=== PATIENT | male | born 2000 | race Caucasian/White ===

== ENCOUNTER 2024-05-03 14:50 | Emergency (ER) | payer BC, SELFPAY ==
[2024-05-03 15:43] VITALS: BP 139/76; PULSE 67; RESP 20; TEMP 36.6; O2SAT 99; BMI 27.3
--- NOTE | 2024-05-03 16:00 | ED_ITS ---
Discharge Plan Disposition Patient Disposition: Home, Self-Care Condition: Good Referrals Follow up/Referrals: Provider,Referral, MD [Primary Care Provider] - See instructions Activity Restrictions/Add. Instructions Additional Instructions/Restrictions: Follow up with your Family Doctor to get the results and discuss treatment if anything is positive Your test results should be back in the next 3-5 days Refrain from sexual activity until you get your test back and they are negative or you have been treated Clinical Impressions Clinical Impression: Possible exposure to STI Instructions Patient Instructions: Chlamydia, DI for Gonorrhea Print Language Print Language: Hungarian Discharge ED Provider: Keisha Benitez [facility] HPI General Stated complaint: std test Mode of Arrival: Ambulatory Source of Information: Patient Time Seen by Provider: 05/03/24 16:00 Description of Symptoms (Recalled from Triage Doc. by RN): STD TESTING HEENT Symptoms (Recalled from RN notes): No Resp Symptoms (Recalled from RN notes): No Skin Symptoms (Recalled from RN notes): No MS Symptoms (Recalled from RN notes): No Functional Status (Recalled from RN notes): WNL History of Present Illness Provider Complaint: Patient requesting to be tested for STD and herpes States he hasnt had any known exposures but someone in the past that he was with had some places on her lips and he was worried and hasnt been tested so he wanted to get tested for trich, Chlamydia, Gonorrhea and herpes Related Data Allergies Allergy/AdvReac Type Severity Reaction Status Date / Time No Known Allergies Allergy Verified 05/03/24 16:29 Worker's Comp Is this a Worker's Comp case?: No [facility] Disclaimer: The information contained in this section may have been updated after the patient was seen, as this information can be updated by other users. Social History Smoking Status: Unknown if ever smoked alcohol intake: never current occupational status: employed Travel in the last 8 weeks: None ROS Obtained: Yes All systems reviewed & no additional complaints except as documented and Yes Systems reviewed as appropriate & no additional complaints except as documented Constitutional Constitutional: Reports system reviewed and no additional complaints, except as documented and Reports as per HPI ENT Ears, Nose, Mouth, and Throat: Reports system reviewed and no additional complaints, except as documented and Reports as per HPI Cardiovascular Cardiovascular: Reports system reviewed and no additional complaints, except as documented and Reports as per HPI Respiratory Respiratory: Reports system reviewed and no additional complaints, except as documented and Reports as per HPI Gastrointestinal Gastrointestingal: Reports system reviewed and no additional complaints, except as documented and as per HPI Genitourinary Male Genitourinary: Reports system reviewed and no additional complaints, except as documented, Reports as per HPI, Denies genital pain, Denies penile discharge, Denies scrotal swelling, Denies testicular pain and Denies urinary incontinence Physical Exam General General appearance: alert and in no apparent distress ENT ENT exam: Present mucous membranes moist Respiratory Respiratory exam: Present normal lung sounds bilaterally; Absent respiratory distress or wheezes Cardiovascular Cardiovascular exam: Present regular rate, normal rhythm and normal heart sounds Abdominal Exam Abdominal exam: Present soft and normal bowel sounds; Absent distention or tenderness exam: Present deferred Neurological Exam Neurological exam: Present alert, oriented X3 and normal gait Medical Decision Making Medical Records Screening: Per USPSTF and CDC recommendations, given the prevalence of disease in our region, it is our hospital?s policy to screen for HIV and viral Hepatitis for all patients aged 18 and over and those with ongoing risk factors. Carlos Inquiry Pt receiving controlled substance: No Carlos was queried for this patient: No Vital Signs: 05/03/24 15:43 Temperature 97.8 F Temperature Source Oral Pulse Rate [Left Brachial] 67 Respiratory Rate 20 Blood Pressure [Left Arm] 139/76 Blood Pressure Mean [Left Arm] 97 02 Sat by Pulse Oximetry 99 Lab Data Lab results reviewed: Yes I reviewed the patient's lab results.
[2024-05-03 16:47] VITALS: BP 139/76; PULSE 67; RESP 20; TEMP 36.6
[2024-05-03 16:49] LABS: Microscopic, Urine URINE MICROSCOPIC (MICROSCOPIC)
[2024-05-03 16:59] LABS: Appearance,Urine CLEAR (Clear); Bilirubin,Urine Negative (Negative); Blood, Urine Negative (Negative); Color,Urine YELLOW (Yellow); Glucose,Urine (UA) Negative (Negative); Ketones,Urine Negative (Negative); Leukocyte Esterase,Urine Negative (Negative); Nitrate,Urine Negative (Negative); PH,Urine 6.5 (5.0-8.5); Protein,Urine Negative (Negative); Specific Gravity, Urine 1.025 (1.005-1.030)
[2024-05-03 17:20] LABS: Bacteria,Urine Trace /lpf; Mucus,Urine 3+ /lpf; RBC,Urine Occasional #/hpf (0-3); Squamous Epithelial Cell,Urine Occasional #/hpf (0-5); WBC,Urine Occasional #/hpf (0-3)
[2024-05-06 12:14] LABS: Neisseria gonorrhoeae, NAA Negative (Negative)
[2024-05-09 07:21] LABS: HSV-1 DNA Negative (Negative); HSV-2 DNA Negative (Negative)
== END 2024-05-03 16:48 | disposition home or self-care (01) ==
PROVIDERS: Emergency Provider Nurse Practitioner
DX: Z20.2 Contact with and (suspected) exposure to infections with a predominantly sexual mode of transmission (principal)
CPT/HCPCS: 81001; 87491; 87529; 87591; 99203; 99212; G0463

== ENCOUNTER 2024-05-08 17:52 | Emergency (ER) | payer BC, SELFPAY ==
[2024-05-08 18:35] VITALS: BP 143/72; PULSE 54; RESP 20; TEMP 36.7; O2SAT 100; BMI 26.6
[2024-05-08 18:39] LABS: Apearance,Urine Clear (Clear); Color,Urine Yellow (Yellow); Glucose,Urine (UA) Negative (Negative); Ketones,Urine Negative (Negative); PH,Urine 6.5 (5.0-8.5); Protein,Urine Negative (Negative)
[2024-05-08 18:40] LABS: Bilirubin,Urine Negative (Negative); Blood, Urine Negative (Negative); UTC Leukocyte Esterase,Urine Negative (Negative); UTC Nitrate,Urine Negative (Negative); Urobilinogen,Urine 0.2 EU/dl (0.2)
--- NOTE | 2024-05-08 18:43 | ED_ITS ---
Discharge Plan Disposition Patient Disposition: Home, Self-Care Condition: Good Prescriptions Prescriptions: New fluconazole 150 mg tablet 150 mg PO ONCE 1 Days Qty: 1 0RF Referrals Follow up/Referrals: Provider,Referral, MD [Primary Care Provider] - See instructions Activity Restrictions/Add. Instructions Additional Instructions/Restrictions: Take medication as prescribed It is one pill Follow up with your Family Doctor if symptoms continue Return if needed Straight to ER if any life threatening symptoms Clinical Impressions Clinical Impression: Yeast infection Instructions Patient Instructions: Fluconazole Print Language Print Language: Sri Lankan Discharge ED Provider: Keisha Benitez [facility] General Stated complaint: possible uti Mode of Arrival: Ambulatory Source of Information: Patient Time Seen by Provider: 05/08/24 18:43 Description of Symptoms (Recalled from Triage Doc. by RN): POSSIBLE UTI, BURING WHEN VOIDING HEENT Symptoms (Recalled from RN notes): No Resp Symptoms (Recalled from RN notes): No Skin Symptoms (Recalled from RN notes): No MS Symptoms (Recalled from RN notes): No Functional Status (Recalled from RN notes): WNL History of Present Illness Provider Complaint: Patient states that he has had a little burning/itchy feeling when he urinates States it is not bad just a little uncomfortable at times States he was worried he may have a UTI Related Data Previous Rx's ?Medication ?Instructions ?Recorded fluconazole 150 mg tablet 150 mg PO ONCE 1 day #1 tab 05/08/24 Allergies Allergy/AdvReac Type Severity Reaction Status Date / Time No Known Allergies Allergy Verified 05/03/24 16:29 Worker's Comp Is this a Worker's Comp case?: No [facility] Disclaimer: The information contained in this section may have been updated after the patient was seen, as this information can be updated by other users. Social History (Updated 05/03/24 @ 19:14 by Keisha Benitez APRN) Smoking Status: Unknown if ever smoked alcohol intake: never current occupational status: employed Travel in the last 8 weeks: None ROS Obtained: Yes All systems reviewed & no additional complaints except as documented and Yes Systems reviewed as appropriate & no additional complaints except as documented Constitutional Constitutional: Reports system reviewed and no additional complaints, except as documented and Reports as per HPI ENT Ears, Nose, Mouth, and Throat: Reports system reviewed and no additional complaints, except as documented and Reports as per HPI Cardiovascular Cardiovascular: Reports system reviewed and no additional complaints, except as documented and Reports as per HPI Respiratory Respiratory: Reports system reviewed and no additional complaints, except as documented and Reports as per HPI Gastrointestinal Gastrointestingal: Reports system reviewed and no additional complaints, except as documented and as per HPI Genitourinary Male Genitourinary: Reports system reviewed and no additional complaints, except as documented, Reports as per HPI and Reports other (burning/itchy feeling when urinating) Physical Exam General General appearance: alert and in no apparent distress ENT ENT exam: Present mucous membranes moist Respiratory Respiratory exam: Present normal lung sounds bilaterally; Absent respiratory distress or wheezes Cardiovascular Cardiovascular exam: Present regular rate, normal rhythm and normal heart sounds exam: Present other (mild redness noted ); Absent testicular tenderness, urethral discharge or scrotal swelling Neurological Exam Neurological exam: Present alert, oriented X3 and normal gait Medical Decision Making Medical Records Screening: Per USPSTF and CDC recommendations, given the prevalence of disease in our region, it is our hospital?s policy to screen for HIV and viral Hepatitis for all patients aged 18 and over and those with ongoing risk factors. Carlos Inquiry Pt receiving controlled substance: No Carlos was queried for this patient: No Vital Signs: 05/08/24 18:35 Temperature 98.1 F Temperature Source Oral Pulse Rate [Left Brachial] 54 L Respiratory Rate 20 Blood Pressure [Left Arm] 143/72 H Blood Pressure Mean [Left Arm] 95 02 Sat by Pulse Oximetry 100 Lab Data Lab results reviewed: Yes I reviewed the patient's lab results. Lab Results 05/08/24 18:38: Urine Color Yellow, Urine Appearance Clear, Urine pH 6.5, Ur Specific [place] 1.030, Urine Protein Negative, Urine Glucose (UA) Negative, Urine Ketones Negative, Urine Blood Negative, Urine Nitrate Negative, Urine Bilirubin Negative, Urine Urobilinogen 0.2, Ur Leukocyte Esterase Negative
[2024-05-08 19:14] VITALS: BP 143/72; PULSE 54; RESP 20; TEMP 36.7
== END 2024-05-08 19:15 | disposition home or self-care (01) ==
PROVIDERS: Emergency Provider Nurse Practitioner
DX: B37.42 Candidal balanitis (principal); R30.0 Dysuria
CPT/HCPCS: 81003; 99212; 99214; G0463

== ENCOUNTER 2024-06-30 16:49 | Emergency (ER) | payer BC, SELFPAY ==
[2024-06-30 17:30] VITALS: BP 128/84; PULSE 64; RESP 19; TEMP 36.9; O2SAT 99; BMI 26.6
--- NOTE | 2024-06-30 17:34 | ED_ITS ---
Discharge Plan Disposition Patient Disposition: Home, Self-Care Condition: Good Prescriptions Prescriptions: New cyclobenzaprine 10 mg Tablet 10 mg PO BID PRN (Reason: Muscle Spasm) Qty: 20 0RF methylprednisolone 4 mg Tablets,Dose Pack 4 mg PO DIRECTED 6 Days Qty: 21 0RF Rx Instructions: Take 1 pack as directed for 6 days Referrals Follow up/Referrals: Provider,Referral, MD [Primary Care Provider] - See instructions Activity Restrictions/Add. Instructions Additional Instructions/Restrictions: Go home and rest. It would be best if you rested for the next couple of days. No heavy lifting & No twisting for the next few days. Take the oral medications as directed. The muscle relaxer (cyclobenzaprine--Flexeril) will make you drowsy, so don't drive or operate heavy machinery after taking it. Follow up with your regular doctor. GO TO THE ER FOR ANY WORSENING SYMPTOMS OR CONCERN, ESPECIALLY BOWEL OR KAREN DDER ISSUES, SADDLE AREA NUMBNESS, FEVER, ETC Clinical Impressions Clinical Impression: Back pain, thoracic, Low back pain Instructions Patient Instructions: DI for Low Back Pain, Cyclobenzaprine, Methylprednisolone Print Language Print Language: Uzbek Discharge ED Provider: Milton James [facility] General Stated complaint: lower back pain Time Seen by Provider: 06/30/24 17:34 Related Data Previous Rx's ?Medication ?Instructions ?Recorded cyclobenzaprine 10 mg tablet 10 mg PO BID PRN Muscle Spasm #20 06/30/24 tabs methylprednisolone 4 mg tablets in 4 mg PO DIRECTED 6 days #21 tabs 06/30/24 a dose pack Allergies Allergy/AdvReac Type Severity Reaction Status Date / Time No Known Allergies Allergy Verified 05/03/24 16:29 [facility] Disclaimer: The information contained in this section may have been updated after the patient was seen, as this information can be updated by other users. Medical History (Updated 06/30/24 @ 18:11 by Milton James APRN) No significant past medical history Social History (Updated 05/03/24 @ 19:14 by Keisha Benitez APRN) Smoking Status: Unknown if ever smoked alcohol intake: never current occupational status: employed Travel in the last 8 weeks: None ROS Obtained: Yes All systems reviewed & no additional complaints except as documented Constitutional Constitutional: Denies chills and Denies fever(s) Eyes Eyes: Denies eye discharge ENT Ears, Nose, Mouth, and Throat: Denies dizziness, Denies otalgia, Denies neck pain and Denies sore throat Cardiovascular Cardiovascular: Denies chest pain Respiratory Respiratory: Denies shortness of breath, Denies chest congestion, Denies cough, Denies stridor and Denies wheezing Gastrointestinal Gastrointestingal: Denies nausea or vomiting Musculoskeletal Musculoskeletal: Reports as per HPI, Reports back pain, Denies neck pain and Denies numbness Integumentary/Breasts Skin/Breast: Denies rash Neurologic Neurologic: Denies dizziness, Denies numbness, Denies paresthesias and Denies radicular pain Allergic/Immunologic Allergic/Immunologic: Denies wheezing Physical Exam General General appearance: alert and in no apparent distress Head Head exam: atraumatic, normocephalic and normal inspection Eye Eye exam: Present normal appearance, PERRL and EOMI ENT ENT exam: Present normal exam, normal oropharynx, mucous membranes moist, TM's normal bilaterally and normal external ear exam Neck Neck exam: Present normal inspection, full ROM and trachea midline; Absent meningismus or lymphadenopathy Chest Chest inspection: Present normal inspection and symmetric chest wall rise; Absent tenderness Respiratory Respiratory exam: Present normal lung sounds bilaterally; Absent respiratory distress Cardiovascular Cardiovascular exam: Present regular rate and normal rhythm; Absent JVD Abdominal Exam Abdominal exam: Present soft and normal bowel sounds; Absent distention, tenderness or guarding Extremities Exam Extremities exam: Present normal inspection, full ROM and normal capillary refill; Absent calf tenderness Back Exam Back exam: Present normal inspection; Absent tenderness Neurological Exam Neurological exam: Present alert, oriented X3, CN II-XII intact, normal gait and reflexes normal; Absent motor sensory deficit Expanded Neurological Exam Speech: Present fluid speech Cranial nerves: Normal: EOM function (II, III, IV, ), facial sensation (V), facial palsy (VII), gag reflex (IX), spinal accessory function (XI) and tongue deviation (XII) Cerebellar function: normal gait Motor strength - LUE: 5/5 Motor strength - RUE: 5/5 Motor strength - LLE: 5/5 Motor strength - RLE: 5/5 Sensory exam upper extremity: Normal: light touch and 2 point discrimination Sensory exam lower extremity: Normal: light touch and 2 point discrimination DTR: 2+: biceps (L), biceps (R), patellar (L), patellar (R), Achilles tendon (L) and Achilles tendon (R) Spinal cord function: Absent saddle anesthesia Psychiatric Psychiatric exam: Present normal affect and normal mood Skin Skin exam: Present warm, dry, intact and normal color Lymphatic Lymphatic Findings: no adenopathy Medical Decision Making Medical Records Medical records reviewed: No I reviewed the patient's medical records. Screening: Per USPSTF and CDC recommendations, given the prevalence of disease in our region, it is our hospital?s policy to screen for HIV and viral Hepatitis for all patients aged 18 and over and those with ongoing risk factors. Carlos Inquiry Pt receiving controlled substance: No
--- NOTE | 2024-06-30 17:39 | XR_ITS ---
PROCEDURE INFORMATION: Exam: XR Thoracic Spine Exam date and time: 06/30/2024 5:45 PM Age: 23 years old Clinical indication: Pain in thoracic spine; Additional info: Middle and low back pain, no known trauma TECHNIQUE: Imaging protocol: Radiologic exam of the thoracic spine. Views: 2 views. COMPARISON: No relevant prior studies available. FINDINGS: Bones/joints: Normal. No acute fracture. Normal alignment. Soft tissues: Unremarkable. IMPRESSION: No acute findings.
--- NOTE | 2024-06-30 17:39 | XR_ITS ---
PROCEDURE INFORMATION: Exam: XR Lumbosacral Spine Exam date and time: 06/30/2024 5:47 PM Age: 23 years old Clinical indication: Low back pain; Additional info: Middle and low back pain, no known trauma TECHNIQUE: Imaging protocol: Radiologic exam of the lumbosacral spine. Views: 2 or 3 views. COMPARISON: CR Thoracic spine 06/30/2024 5:45 PM FINDINGS: Bones/joints: Normal. No acute fracture. Normal alignment. Soft tissues: Unremarkable. IMPRESSION: No acute findings.
[2024-06-30 18:16] VITALS: BP 128/84; PULSE 64; RESP 19; TEMP 36.9; O2SAT 99
--- OUTSIDE RECORDS SUMMARY | 2024-07-02 15:10 | XMS_ITS | Encounter Summary ---
Author Organization [facility] Address [address] [place] [id number] Phone [email or web address] Care Team Providers Care Maintenance Of Way Supervisor Name Role Phone Unavailable Primary Care Provider Unavailabl e Reason for Visit * Reason Onset Date Comments Referral Management 10/18/2023 Faye Ng ardiology/palpitations Encounter Details Date Type Department Care Team (Late st Contact Info) Description 10/18/2023 Documentation [facility] [address] [place] [address] Tova Perez CMA [address] [place] [address] Social History Tobacco Use Types Packs/Day Years Used Date Smoking Tobacco: Former E-Cigarettes Smokeless Tobacco: Never Alcohol Use Standard Drinks/Week Comments Yes 0 (1 standard drink = 0.6 oz pur e alcohol) on occ. and not daily Alcohol Use Answer Date Recorded Alcohol Use Status Yes 10/13/2023 Sex and Gender Information Value Date Recorded Sex Assigned at Not on file Legal Sex Male 3:06 PM [employer]ING [employer] Gender Identity Not on file Sexual Orientation Not on file documented as of this encounter Progress Notes * Tova Perez CMA - 10/18/2023 5:59 AM EST Referral faxed to [facility] after receiving insurance today. They will contact patient directly.See scanned documents. [place] [employer] SUPER[employer]OR documented in this encounter Plan of Treatment Not on file documented as of this encounter Visit Diagnoses Not on filedocumented in this encounter
--- OUTSIDE RECORDS SUMMARY | 2024-07-02 15:10 | XMS_ITS | Encounter Summary ---
Author Organization [facility] Address [address] [place] [address] Phone [email or web address] Care Team Providers Care Site Damage Prevention Technician Name Role Phone Unavailable Primary Care Provider Unavailabl e Reason for Visit * Reason Comments Ear / Eye / Nose/ Throat Issue throat ir ritation Heart Issue palpitations Encounter Details Date Type Department Care Team (Late st Contact Info) Description 10/13/2023 5:00 PM EST Office Visit [facility] [address] [place] [address] Liss Baum PA [address] [place] [address] Palpitations (Primary Dx); Throat irritation Social History Tobacco Use Types Packs/Day Years [...] on file 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 Gender Identity Not on file Sexual Orientation Not on file documented as of this encounter Last Filed Vital Signs Vital Sign Reading Time Taken Comments Blood Pressure 112/70 10/13/2023 6:10 PM EST Pulse 48 10/13/2023 6:10 PM EST Temperature 36.9 ??C (98.4 ??F) 10/13/2023 6:10 PM ES T Respiratory Rate - - Oxygen Saturation 99% 10/13/2023 6:10 PM EST Inhaled Oxygen Concentration - - Weight 85.3 kg (188 lb) 10/13/2023 6:10 PM EST Height 182.9 cm (6') 10/13/2023 6:10 PM EST Body Mass Index 25.5 10/13/2023 6:10 PM EST documented in this encounter Patient Instructions * Patient Instructions* JEREMIAH Cruz - 10/13/2023 5:00 PM EST Will have TM take Claritin 10mg once a day for his throat irritation. Bobo CMP, CBC with diff, TSH, and lipid panel for further evaluation of palpitations.Will send [facility] message or call results. Will refer to teacher counselor for palpitations and family history of younger brother with enlarged heart. CIAL CLERK documented in this encounter Progress Notes * JEREMIAH Cruz - 10/13/2023 5:00 PM EST Subjective: Renny Johnson is a 22 y.o. male. Chief Complaint: Chief Complaint Patient presents with Ear / Eye / Nose/ Throat Issue throat irritation Heart Issue palpitations History Reviewed: The following portions of the patient's chart were reviewed in this encounter and updated as appropriate: Tobacco Allergies Meds Problems Med Hx Surg Hx TM walked into clinic stating he wanted to be checked for strep throat. Therefore, TM worked in plista out his throat has been feeling irritated at times for about 3-4 weeks. No sinus congestion, sinus pressure, runny nose, ear pain, cough, shortness of breath, fatigue, fever, chills, sweats, orGI issues. No exposure to covid or flu. Throat is not painful currently, just feels irritated. Not sure about post nasal drainage. No reflux issues. TM states he has been having some heart palpitations on a intermittent basis over the last 6 months, but seems to be occurring more often. Heart flutters/skips. No chest pain. Thought it was due to caffeine and pre-workout supplements/drinks. Therefore, he quit using them and still having issues. His younger brother had an accidental drowning about 1 year ago and the autopsy showed an enlarged heart, which concerns him some. Review of Systems Constitutional: Negative for chills, diaphoresis, fatigue, fever and unexpected weight change. HENT: Negative for congestion, ear pain, nosebleeds, postnasal drip, rhinorrhea, sinus pressure, sinus pain, sneezing, sore throat (but throat irritation) and trouble swallowing. Respiratory: Negative for cough, shortness of breath and wheezing. Cardiovascular: Positive for palpitations. Negative for chest pain and leg swelling. Gastrointestinal: Negative for abdominal pain, constipation, diarrhea, heartburn, vomiting and belching. Musculoskeletal: Negative for arthralgias and myalgias. Neurological: Negative for light-headedness and headaches. Visit Vitals BP 112/70 (BP Location: Right arm, Patient Position: Sitting, BP Cuff Size: Adult) Pulse (!) 48 Temp 98.4 ??F (Oral) Ht 6' Wt 188 lb SpO2 99% BMI 25.50 kg/m?? Smoking Status Former BSA 2.08 m?? Objective: Physical Exam Vitals reviewed. Constitutional: General: He is not in acute distress. Appearance: Normal appearance. He is normal weight. He is not ill-appearing, toxic-appearing or diaphoretic. HENT: Head: Normocephalic. Right Ear: Ear canal and external ear normal. There is no impacted cerumen. Left Ear: Ear canal and external ear normal. There is no impacted cerumen. Ears: Comments: fluid behind TMs Nose: Nose normal. No congestion or rhinorrhea. Mouth/Throat: Mouth: Mucous membranes are moist. Pharynx: Oropharynx is clear. No oropharyngeal exudate or posterior oropharyngeal erythema. Eyes: Conjunctiva/sclera: Conjunctivae normal. Neck: Vascular: No carotid bruit. Cardiovascular: Rate and Rhythm: Bradycardia present. Heart sounds: Normal heart sounds. No murmur heard. No friction rub. No gallop. Pulmonary: Effort: Pulmonary effort is normal. No respiratory distress. Breath sounds: Normal breath sounds. No wheezing, rhonchi or rales. Chest: Chest wall: No tenderness. Abdominal: General: Bowel sounds are normal. Palpations: Abdomen is soft. There is no mass. Tenderness: There is no abdominal tenderness. There is no guarding. Hernia: No hernia is present. Musculoskeletal: Cervical back: No tenderness. Lymphadenopathy: Cervical: No cervical adenopathy. Skin: General: Skin is warm and dry. Neurological: Mental Status: He is alert and oriented to person, place, and time. Motor: No weakness. Psychiatric: Mood and Affect: Mood normal. Assessment/Plan: Diagnoses and all orders for this visit: Palpitations - ECG 12 lead - Comprehensive metabolic panel CMP (17908) - CBC Complete blood count with diff (09855) - TSH Thyroid Stimulating Hormone (42867) - Lipid panel (06067) - Ambulatory Referral to Cardiology; Future Throat irritation Patient Instructions Will have TM take Claritin 10mg once a day for his throat irritation. Bobo CMP, CBC with diff, TSH, and lipid panel for further evaluation of palpitations.Will send [facility] message or call results. Will refer to teacher counselor for palpitations and family history of younger brother with enlarged heart. JEREMIAH Cruz CIAL CLERK documented in this encounter Procedure Notes * Alissa Castelan RN - 10/13/2023 5:00 PM EST Procedures CIAL CLERK documented in this encounter Plan of Treatment Not on file documented as of this encounter Procedures Procedure Name Priority Date/Time Associated Diagnosis Comments ECG 12-LEAD Routine 10/13/2023 6:13 PM EST Palpitations CBC WITH DIFFERENTIAL/PLATELET Routine 10/13/2023 5:30 PM EST Palpitations TSH Routine 10/13/2023 5:30 PM EST Palpitations LIPID PANEL Routine 10/13/2023 5:30 PM EST Palpitations COMPREHENSIVE METABOLIC PANEL Routine 10/13/2023 5:30 PM EST Palpitations documented in this encounter Results * (ABNORMAL) ECG 12 lead (10/13/2023 6:13 PM EST) [place] Liss Baum PA - 10/13/2023 6:13 PM EST EKG- sinus bradycardia with septal T wave abnormality. No prior EKG for comparison us Liss DANIELS ECG ORDERABLES Final Result * Lipid panel (08245) (10/13/2023 5:30 PM EST) Cholesterol 137 <200 mg/dL [facility] Total HDL-C Direct 61 > OR = 40 mg/dL [facility] Triglycerides 35 <150 mg/dL [facility] LDL Calculated 66 mg/dL (calc) [facility] Comment: Reference range: <100 Desirable range <100 mg/dL for primary prevention; ?? <70 mg/dL for patients with CHD or diabetic patients with > or = 2 CHD risk factors. LDL-C is now calculated using the Paris calculation, which is a validated novel method providing better accuracy than the Friedewald equation in the estimation of LDL-C. Edy SIMON et al. REYNOLD. 2013;310(19): 0630-3881 (http://education.SelectMinds/faq/NWD691) Chol/HDL Ratio 2.2 <5.0 (calc) [facility] Non HDL Chol. (LDL+VLDL) 76 <130 mg/dL (calc) [facility] Comment: For patients with diabetes plus 1 major ASCVD risk factor, treating to a non-HDL-C goal of <100 mg/dL (LDL-C of <70 mg/dL) is considered a therapeutic option. Blood (Blood, Venous) 10/13/2023 5:30 PM EST 10/14/2023 7:48 AM EST us iLss DANIELS LAB BLOOD ORDERABLES Final R esult [facility] [address] [place] [address] * TSH Thyroid Stimulating Hormone?? (53396) (10/13/2023 5:30 PM EST) TSH, High Sensitivity 1.18 0.40 - 4.50 mIU/L [facility] Blood (Blood, Venous) 10/13/2023 5:30 PM EST 10/14/2023 7:48 AM EST us Liss DANIELS LAB BLOOD ORDERABLES Final R esult [facility] [address] [facility] [place] [address] * CBC Complete blood count with diff (64069) (10/13/2023 5:30 PM EST) Auto WBC 6.2 3.8 - 10.8 Thousand/u L [facility] RBC 4.60 4.20 - 5.80 Million/uL [facility] Hemoglobin 13.9 13.2 - 17.1 g/dL [facility] Hematocrit 41.9 38.5 - 50.0 % [facility] MCV 91.1 80.0 - 100.0 fL [facility] MCH 30.2 27.0 - 33.0 pg [facility] MCHC 33.2 32.0 - 36.0 g/dL [facility] RDW 12.6 11.0 - 15.0 % [facility] Platelets 226 140 - 400 Thousand/u L [facility] MPV 10.1 7.5 - 12.5 fL [facility] Neutrophils Absolute 3,596 1,500 - 7,800 cells/uL [facility] Lymphocytes Absolute 2,077 850 - 3,900 cells/uL [facility] Monocytes Absolute 434 200 - 950 cells/uL [facility] Eosinophils Absolute 62 15 - 500 cells/uL [facility] Basophils Absolute 31 0 - 200 cells/uL [facility] Neutrophils Relative 58 % [facility] Lymphocytes Relative 33.5 % [facility] Monocytes Relative 7.0 % [facility] Eosinophils Relative 1.0 % [facility] Basophils Relative 0.5 % [facility] Blood (Blood, Venous) 10/13/2023 5:30 PM EST 10/14/2023 7:48 AM EST us Liss DANIELS LAB BLOOD ORDERABLES Final R esult [facility] [address] [place] [address] * Comprehensive metabolic panel [facility] ([id number]) (10/13/2023 5:30 PM EST) Pathologist [facility] Glucose 84 65 - 99 mg/dL [facility] Comment: ? Fasting reference interval BUN 14 7 - 25 mg/dL [facility] Creatinine 0.87 0.60 - 1.24 mg/dL [facility] eGFR 124 > OR = 60 mL/min/1. 73m2 [facility] BUN/Creatinine Ratio SEE NOTE: 6 (calc) [facility] Comment: ?? Not Reported: BUN and Creatinine are within ?? reference range. ? Sodium 140 135 - 146 mmol/L [facility] Potassium 4.3 3.5 - 5.3 mmol/L [facility] Chloride 104 98 - 110 mmol/L [facility] CO2 27 20 - 32 mmol/L [facility] Calcium 10.0 8.6 - 10.3 mg/dL [facility] Total Protein 7.0 6.1 - 8.1 g/dL [facility] Albumin 5.0 3.6 - 5.1 g/dL [facility] Globulin, Total 2.0 1.9 - 3.7 g/dL (calc) [facility] A/G Ratio 2.5 1.0 - 2.5 (calc) [facility] Total Bilirubin 0.7 0.2 - 1.2 mg/dL [facility] Alkaline Phosphatase 94 36 - 130 U/L [facility] AST 39 10 - 40 U/L [facility] ALT (SGPT) 29 9 - 46 U/L [facility] Blood (Blood, Venous) 10/13/2023 5:30 PM EST 10/14/2023 7:48 AM EST us Liss DANIELS LAB BLOOD ORDERABLES Final R esult [facility] [address] [place] [address] documented in this encounter Visit Diagnoses Diagnosis Palpitations- Primary Throat irritation documented in this encounter
--- OUTSIDE RECORDS SUMMARY | 2024-07-02 15:10 | XMS_ITS | Encounter Summary ---
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 I did send him another invite for [employer] messaging as well. Proceed with cardiology referral. DRIVER documented in this encounter Plan of Treatment Not on file documented as of this encounter Visit Diagnoses Not on filedocumented in this encounter
--- OUTSIDE RECORDS SUMMARY | 2024-07-02 15:10 | XMS_ITS | Encounter Summary ---
Author Organization [facility] Address [address] [place] [address] Phone [email or web address] Care Team Providers Care Scan Coordinator Name Role Phone Unavailable Primary Care Provider Unavailabl e Reason for Visit * Reason Onset Date Comments Referral Management 10/14/2023 Cardiology Encounter Details Date Type Department Care Team (Late st Contact Info) Description [facility] [address] [place] [address] Tova Perez CMA [address] [place] [address] Social History Tobacco Use Types [...] on file 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 Pt does not have insurance currently. Pt will contact HR and find out when he will receive so that referral can be completed. NEY CCMA ER STOCK GRADER documented in this encounter Plan of Treatment Not on file documented as of this encounter Visit Diagnoses Not on filedocumented in this encounter
--- OUTSIDE RECORDS SUMMARY | 2024-07-02 15:10 | XMS_ITS | Data Portability ---
Author Organization [facility] & APRIL Cook ADMIN Address [address] [place] [id number] Assessment No assessment recorded. Plan of Treatment Reminders Order Date Submit Date Provider Last Modified By Organization Details Last Modified Time Details Appointments None recorded. Lab CMP, serum or plasma 2023 024 [facility] (Registration ), [address], [place], [address], 4 10:46:43 TSH, serum or plasma 2023 024 [facility] (Registration ), [address] [facility], [place], [address], 4 10:53:15 CBC 2023 024 [facility] (Registration ), [address], [place], [address], 4 10:53:15 lipid panel, serum 2023 024 [facility] (Registration ), [address], [place], [address], 4 10:53:15 Referral None recorded. Procedures None recorded. Surgeries None recorded. Imaging electrocard iogram 2023 024 [facility], [address], [place], [address], 4 16:27:46 US, echocardiog joshua, transthorac ic, complete, w/ color flow 2023 024 [facility], [address], [place], [address], 15:17:00 Medication Orders None recorded. Patient TargetsNo targets recorded. Patient InstructionsNo instructions recorded. Reason for Referral None Reported. Results Created Date Observation Date Name Description Value Unit Range Abnormal Flag Note LastModifiedBy Organization Detail LastModifiedTime 10/27/19 24 10/27/2023 CBC AUTO NO DIFF (HEMO GRAM) WBC 5.7 K/uL 4.0-10 .5 Not Available [facility] ([facility]) [address], [place], [address], 10/27/2023 16:48:36 10/27/19 24 10/27/2023 CBC AUTO NO DIFF (HEMO GRAM) RBC 4.6 M/mm3 4.7-6. 1 low Not Available [facility] ([facility]) [address], [place], [address], 10/27/2023 16:48:36 10/27/19 24 10/27/2023 CBC AUTO NO DIFF (HEMO GRAM) HGB 13.9 gm/dL 13.5-1 8.0 Not Available [facility] ([facility]) [address], [place], [address], 10/27/2023 16:48:36 10/27/19 24 10/27/2023 CBC AUTO NO DIFF (HEMO GRAM) HCT 40.5 % 42.0-5 2.0 low Not Available [facility] ([facility]) [address] [place], [address], 10/27/2023 16:48:36 10/27/19 24 10/27/2023 CBC AUTO NO DIFF (HEMO GRAM) MCV 88.4 fL 78-100 Not Available [facility] ([facility]) [address] [place], [address], 10/27/2023 16:48:36 10/27/19 24 10/27/2023 CBC AUTO NO DIFF (HEMO GRAM) MCH 30.3 pg 27-31 Not Available [facility] ([facility]) [address], [place], [address], 10/27/2023 16:48:36 10/27/19 24 10/27/2023 CBC AUTO NO DIFF (HEMO GRAM) MCHC 34.3 g/dL 32-36 Not Available [facility] ([facility]) [address], [place], [address], 10/27/2023 16:48:36 10/27/19 24 10/27/2023 CBC AUTO NO DIFF (HEMO GRAM) RDW 12.4 % 11.5-1 4.0 Not Available [facility] ([facility]) [address], [place], [address], 10/27/2023 16:48:36 10/27/19 24 10/27/2023 CBC AUTO NO DIFF (HEMO GRAM) platelet count 220 K/uL 150-45 0 Not Available [facility] ([facility]) [address], [place], [address], 10/27/2023 16:48:36 10/27/19 24 10/27/2023 CBC AUTO NO DIFF (HEMO GRAM) MPV 9.1 fL 6-9.5 Not Available [facility] ([facility]) [address], [place], [address], 10/27/2023 16:48:36 10/27/19 24 10/27/2023 CBC AUTO NO DIFF (HEMO GRAM) manual differential NO Not Available [facility] ([facility]) [address], [place], [address], 10/27/2023 16:48:36 10/27/19 24 10/27/2023 COMP METAB OLIC PANEL sodium 139 mmol/ L 136-14 5 Not Available [facility] ([facility]) [address] , [place], [address], 10/27/2023 17:24:21 10/27/19 24 10/27/2023 COMP METAB OLIC PANEL potassium 3.6 mmol/ L 3.6-5. 0 Not Available [facility] ([facility]) [address] , [place], [address], 10/27/2023 17:24:21 10/27/19 24 10/27/2023 COMP METAB OLIC PANEL chloride 102 mmol/ L 98-107 Not Available [facility] ([facility]) [address] , [place], [address], 10/27/2023 17:24:21 10/27/19 24 10/27/2023 COMP METAB OLIC PANEL carbon dioxide 25.0 mmol/ L 21.0-3 2.0 Not Available [facility] ([facility]) [address] , [place], [address], 10/27/2023 17:24:21 10/27/19 24 10/27/2023 COMP METAB OLIC PANEL anion gap 15.6 Not Available [facility] ([facility]) [address] [place], [address], 10/27/2023 17:24:21 10/27/19 24 10/27/2023 COMP METAB OLIC PANEL glucose 80 mg/dL 70-120 Not Available [facility] ([facility]) [address] [place], [address], 10/27/2023 17:24:21 10/27/19 24 10/27/2023 COMP METAB OLIC PANEL BUN 19 mg/dL 7-18 high Not Available [facility] ([facility]) [address] [place], [address], 10/27/2023 17:24:21 10/27/19 24 10/27/2023 COMP METAB OLIC PANEL creatinine 0.9 mg/dL 0.6-1. 3 Not Available [facility] ([facility]) [address], [place], [address], 10/27/2023 17:24:21 10/27/19 24 10/27/2023 COMP METAB OLIC PANEL glomerular filtration rate >60 mlper min 60- Not Available [facility] ([facility]) [address], [place], [address], 10/27/2023 17:24:21 10/27/19 24 10/27/2023 COMP METAB OLIC PANEL total protein 7.6 g/dL 6.4-8. 2 Not Available [facility] ([facility]) [address] , [place], [address], 10/27/2023 17:24:21 10/27/19 24 10/27/2023 COMP METAB OLIC PANEL albumin 4.5 g/dL 3.4-5. 0 Not Available [facility] ([facility]) [address] , [place], [address], 10/27/2023 17:24:21 10/27/19 24 10/27/2023 COMP METAB OLIC PANEL globulin 3.1 Not Available [facility] ([facility]) [address] , [place], [address], 10/27/2023 17:24:21 10/27/19 24 10/27/2023 COMP METAB OLIC PANEL alb/glob ratio 1.5 0.7-2 Not Available [facility] ([facility]) [address] , [place], [address], 10/27/2023 17:24:21 10/27/19 24 10/27/2023 COMP METAB OLIC PANEL calcium 9.2 mg/dL 8.5-10 .5 Not Available [facility] ([facility]) [address] , [place], [address], 10/27/2023 17:24:21 10/27/19 24 10/27/2023 COMP METAB OLIC PANEL bilirubin total 0.90 mg/dL 0.10-1 .00 Not Available [facility] ([facility]) [address], [place], [address], 10/27/2023 17:24:21 10/27/19 24 10/27/2023 COMP METAB OLIC PANEL AST (SGOT) 26 U/L 0-37 Not Available [facility] ([facility]) [address], [place], [address], 10/27/2023 17:24:21 10/27/19 24 10/27/2023 COMP METAB OLIC PANEL ALT (SGPT) 28 U/L 0-65 Not Available [facility] ([facility]) [address], [place], [address], 10/27/2023 17:24:21 10/27/19 24 10/27/2023 COMP METAB OLIC PANEL alk phosphatase 99 U/L 46-116 Not Available [facility] ([facility]) [address], [place], [address], 10/27/2023 17:24:21 10/27/19 24 10/27/2023 LIPID PANEL triglyceride 17 mg/dL 30-200 low Not Available [facility] ([facility]) [address], [place], [address], 10/27/2023 17:25:29 10/27/19 24 10/27/2023 LIPID PANEL cholesterol 143 mg/dL 0-200 Not Available [facility] ([facility]) [address], [place], [address], 10/27/2023 17:25:29 10/27/19 24 10/27/2023 LIPID PANEL HDL 67 mg/dL 40-104 Not Available [facility] ([facility]) [address] [facility], [place], [address], 10/27/2023 17:25:29 10/27/19 24 10/27/2023 LIPID PANEL LDL calculated 73 mg/dL 0-130 Not Available [facility] ([facility]) [address] [facility], [place], [address], 10/27/2023 17:25:29 10/27/19 24 10/27/2023 THYRO ID STIMU LATIN G HORMO NE thyroid stim hormone 0.97 mIU/L 0.36-3 .74 Not Available [facility] ([facility]) [address] [facility], [place], [address], 10/27/2023 17:25:30 10/27/19 24 10/28/2023 elect rocar diogr am No observ ation record ed. [facility] [address], [place], [address], 10/29/2023 11:58:47 10/27/19 24 10/27/2023 elect rocar diogr am No observ ation record ed. [facility] [address], [place], [address], 10/27/2023 16:27:54 11/08/19 24 10/27/[address] ment (PROC ) No observ ation record ed. [email or web address] Not Available 2023 13:52:26 11/16/19 24 10/27/[address] (PROC ) No observ ation record ed. [email or web address] Not Available 2023 13:41:31 11/25/19 24 11/17/2023 US, echoc ardio gram, trans thora cic, compl ete, w/ color flow No observ ation record ed. [facility] [address] [facility] [address], [place], [address], 11/25/2023 15:17:00 Result Notes None recorded. Procedures Surgical History None recorded. Imaging Results Imaging Date Name Status LastModified by Organization Details LastModified Time 10/28/2023 electrocardiogram completed [facility] [address], [place], [address], 10/29/2023 11:58:47 10/27/2023 electrocardiogram completed [facility] [address], [place], [address], 10/27/2023 16:27:54 10/27/2023 event monitor placement (PROC) completed Information not available 11/08/2023 13:52:26 10/27/2023 event monitor placement (PROC) completed Information not available 11/16/2023 13:41:31 11/17/2023 US, echocardiogram, transthoracic, complete, w/ color flow completed [facility] [address], [place], [address], 11/25/2023 15:17:00 Procedure Notes None recorded. Medical Equipment None Reported. Allergies No known drug allergies Vitals Date Recorded Body weight Body mass index (BMI) Body height Oxygen saturation Oxygen saturation in Arterial blood by Pulse oximetry Heart rate Systolic blood pressure Diastolic blood pressure Provider Name and Address Organization Details Last Updated DateTime 4 58212.9 g 25.3 kg/m2 182.88 cm 97 % 97 % 50 /min 147 mm[Hg] 53 mm[Hg] Teresa Margo [facility] [place] 4 15:43:55 Social History Question Answer Notes LastModified by Organizat ion Details LastModified Time Tobacco Smoking Status Former Smoker Teresa Margo ordonez, [facility] [place] 10/27/2023 15:45:37 What Is Your Level Of Alcohol Consumption? Occasional Information not available 10/27/2023 Sex: Unknown Functional Status None recorded. Mental Status None recorded. Family History Nothing Reported Notes:Brother- enlarged hear t Medical History No medical history recorded. Past Encounters Encounter ID Performer Location Encounter Start Date Encounter Closed Date Diagnosis/Indication Diagnosis SNOMED-CT Code Diagnosis ICD10 Code [id number] Lelo Chavez MD [facility] [address] [place] [address] 10/27/2023 15:38:02 10/27/2023 16:17:15 Palpitations 73515568 R00.2 Chest discomfort 8116709 09 R07.89 Ex-smoker 7741098 Z87.89 1 Elevated blood-pressure reading without diagnosis of hypertension 451874222 R03.0 Health Concerns Section Related Observation LastModified by Organization Detai ls LastModified Time None Recorded Concern Status LastModified by Organization Details LastModified Time None Recorded Advance Directives Directive None Recorded Payers Encounter Date Sequence Insurance Name Policy Number Policy Naik Covered Member ID Naik Member ID Guarantor Name 10/27/2023 [facility] BL[facility] (PPO) [id number] Renny Johnson [id number] Rennyzachary Johnson Notes Date Note Type Note Provider Name and Address Organization Details Recorded Time 10/27/2023 text/html 22 year old male , with past medical history of ex smoker. was sent from his primary doctor office for cardiovascular consultation for palpitations, and chest discomfort. palpitation has been bothering him for more than a year, infrequent, fast fluttering. no aggravating and reliving factors, no nausea, vomiting, excessive sweating, dizziness, falling down or passing out. he also had episodes of chest discomfort. not chest pain. non exertional. no shortness of breath. no orthopnea, PND or leg swelling. no bleeding.He was adopted and does not know his family history of heart disease. EKG 10/27/23 SInus bradycardia HR 54 bpm, with sinus arrhythmia, right axis, incomplete rbbb. borderline ekg. MD Starr Diaz[address], [place], [address], [facility] & [place] 10/27/2023 16:09:37
== END 2024-06-30 18:19 | disposition home or self-care (01) ==
PROVIDERS: Emergency Provider Nurse Practitioner Family
DX: M54.6 Pain in thoracic spine (principal); M54.50 Low back pain, unspecified
CPT/HCPCS: 72070; 72100; 99213; G0381

== ENCOUNTER 2024-09-27 14:30 | Emergency (ER) | payer BC, SELFPAY ==
[2024-09-27 14:41] VITALS: BP 120/56; PULSE 62; RESP 18; TEMP 36.6; O2SAT 100; BMI 27.6
--- NOTE | 2024-09-27 14:41 | ED_ITS ---
Discharge Plan Disposition Patient Disposition: Home, Self-Care Condition: Good Prescriptions Prescriptions: New pantoprazole [Protonix] 40 mg tablet,delayed release (DR/EC) 40 mg PO HS Qty: 30 0RF No Action cyclobenzaprine 10 mg Tablet 10 mg PO BID PRN (Reason: Muscle Spasm) Qty: 20 0RF methylprednisolone 4 mg Tablets,Dose Pack 4 mg PO DIRECTED 6 Days Qty: 21 0RF Rx Instructions: Take 1 pack as directed for 6 days Referrals Follow up/Referrals: Too Major II, MD [Staff Physician] - See instructions Provider,ReferralMD [Primary Care Provider] - See instructions Activity Restrictions/Add. Instructions Additional Instructions/Restrictions: Call your family doctor to establish care for this visit to the emergency department and schedule follow-up within 48 hours to ensure improvement. If you have any worsening of your condition or any other concerning signs or symptoms, return to the emergency department or your primary care doctor for further evaluation. Follow-up with GI, call to schedule an appointment. Pantoprazole daily each night before bed. Clinical Impressions Clinical Impression: Abdominal pain, epigastric Instructions Patient Instructions: DI for Acute Abdominal Pain Print Language Print Language: Lithuanian Discharge ED Provider: Harsh Lozano General Adult HPI <JEREMIAH Downs - Last Filed: 09/27/24 21:19> General Chief complaint: Abdominal Pain Stated complaint: upper abd pain, nausea Time Seen by Provider: 09/27/24 14:41 History of Present Illness HPI narrative: Patient presents for 5 days of upper abdominal pain. Patient states that he has had upper abdominal pain for 5 days. He denies any fever chills hemoptysis hematochezia melena nausea vomiting diarrhea any aggravating or relieving factors. He does not report food intolerance and patient is having normal bowel movements and passing flatus. Related Data Previous Rx's ?Medication ?Instructions ?Recorded cyclobenzaprine 10 mg tablet 10 mg PO BID PRN Muscle Spasm #20 06/30/24 tabs methylprednisolone 4 mg tablets in 4 mg PO DIRECTED 6 days #21 tabs 06/30/24 a dose pack pantoprazole 40 mg tablet,delayed 40 mg PO HS #30 tabs 09/27/24 release (Protonix) Allergies Allergy/AdvReac Type Severity Reaction Status Date / Time No Known Allergies Allergy Verified 05/03/24 16:29 PFS <JEREMIAH Downs - Last Filed: 09/27/24 21:19> [facility] Disclaimer: The information contained in this section may have been updated after the patient was seen, as this information can be updated by other users. Medical History (Updated 09/27/24 @ 16:27 by Harsh Lozano MD) No significant past medical history Social History (Updated 05/03/24 @ 19:14 by Keisha Benitez APRN) Smoking Status: Never smoker alcohol intake: never current occupational status: employed Travel in the last 8 weeks: None Have you lived/traveled outside [place] in past 30 days?: No Contact w/someone who lives/traveled outside US past 30 days?: No Exposure to someone with infectious disease in past 14 days?: No Do you have a fever (greater than 100.4 F or 38 C)?: No Have you tested positive for COVID-19: No Exposed to someone with COVID-19 in past 14 days?: No Do you have a sore throat?: No Do you have a cough?: No Do you have any weakness?: No Do you have any diarrhea?: No Are you experiencing any unusual bleeding?: No Do you have any muscle aches/pain?: No Do you have any abdominal pain?: Yes Are you experiencing loss of taste or smell?: No <JEREMIAH Downs - Last Filed: 09/27/24 21:19> ROS Obtained: Yes Systems reviewed as appropriate & no additional complaints except as documented Physical Exam <JEREMIAH Downs - Last Filed: 09/27/24 21:19> General General appearance: alert and in no apparent distress Respiratory Respiratory exam: Present normal lung sounds bilaterally Cardiovascular Cardiovascular exam: Present regular rate Neurological Exam Neurological exam: Present alert and oriented X3 Medical Decision Making <JEREMIAH Downs - Last Filed: 09/27/24 21:19> Medical Records Medical records reviewed: Yes I reviewed the patient's medical records. Screening: Per USPSTF and CDC recommendations, given the prevalence of disease in our region, it is our hospital?s policy to screen for HIV and viral Hepatitis for all patients aged 18 and over and those with ongoing risk factors. Carlos Inquiry Pt receiving controlled substance: No Vital Signs: 09/27/24 14:41 09/27/24 15:24 09/27/24 15:30 Temperature 97.8 F Temperature Source Oral Pulse Rate 67 71 Pulse Rate [Right] 62 Respiratory Rate 18 Blood Pressure 106/65 L 122/61 Blood Pressure [Right Arm] 120/56 L Blood Pressure Mean [Right Arm] 77 Blood Pressure Position [Right Arm] Sitting 02 Sat by Pulse Oximetry 100 99 98 Oxygen Delivery Method Room Air Room Air Room Air 09/27/24 16:00 09/27/24 16:30 09/27/24 16:36 Temperature 98.2 F Temperature Source Pulse Rate 52 L 55 L 70 Pulse Rate [Right] Respiratory Rate 20 Blood Pressure 113/71 126/70 126/70 Blood Pressure [Right Arm] Blood Pressure Mean [Right Arm] Blood Pressure Position [Right Arm] 02 Sat by Pulse Oximetry 99 100 Oxygen Delivery Method Room Air Room Air Room Air Lab Data Lab results reviewed: Yes I reviewed the patient's lab results. Lab Results 09/27/24 14:48: WBC 5.8, RBC 4.73, Hgb 13.8 L, Hct 40.4 L, MCV 85.4, MCH 29.2, MCHC 34.2, RDW 12.3, Plt Count 215, MPV 9.6, Neut % (Auto) 58.9, Lymph % (Auto) 29.5, [place] % (Auto) 8.5, Eos % (Auto) 2.3, Baso % (Auto) 0.5, Neut # (Auto) 3.4, Lymph # (Auto) 1.7, [place] # (Auto) 0.5, Eos # (Auto) 0.1, Baso # (Auto) 0.0, PT 11.1, INR 0.99, Sodium 139, Potassium 3.8, Chloride 103, Carbon Dioxide 29, Anion Gap 10.8, BUN 13, Creatinine 0.90, Estimated Creat Clear 164, Estimated GFR 103, Est GFR ( Amer) 124, Glucose 72 L, Calcium 8.8, Magnesium 1.8, Total Bilirubin 0.7, AST 36, ALT 31, Alkaline Phosphatase 83, Troponin I < 0.01, Total Protein 6.6, Albumin 4.5, Globulin 2.1, Albumin/Globulin Ratio 2.1 H, Lipase 71, Plasma/Serum Alcohol < 10 09/27/24 15:15: Urine Color Yellow, Urine Appearance Clear, Urine pH 6.0, Ur Specific [place] 1.020, Urine Protein Negative, Urine Glucose (UA) Negative, Urine Ketones Negative, Urine Blood Negative, Urine Nitrate Negative, Urine Bilirubin Negative, Urine Urobilinogen 0.2, Ur Leukocyte Esterase Negative, Urine RBC 3-5, Urine WBC Occasional, Urine Bacteria 4+ 09/27/24 14:48 09/27/24 14:48 Orders (Tests/Meds): ED MEDICATIONS Discontinued Medications Generic Name Dose Route Start Last Admin Trade Name Freq PRN Reason Stop Dose Admin Belladonna Alkaloids 60 ml 09/27/24 14:47 09/27/24 14:54 Belladonna Alkaloids 60 Ml Ml PO 09/27/24 14:48 60 ml ONCE ONE Administration Lactated Ringer's 1,000 mls @ 999 mls/hr 09/27/24 14:47 09/27/24 14:54 Lactated Ringer's 1000 Ml Bag IV 09/27/24 15:47 999 mls/hr .Q1H1M ONE Administration Iopamidol 75 ml 09/27/24 14:56 09/27/24 14:57 Iopamidol-370 (76%);100ml Bottle IV 09/27/24 14:57 75 ml ONCE ONE Administration Ondansetron HCl 4 mg 09/27/24 14:47 09/27/24 14:54 Ondansetron 4mg/2ml Vial IV 09/27/24 14:48 4 mg ONCE ONE Administration Sodium Chloride 10 ml 09/27/24 14:56 09/27/24 14:56 Sodium Chloride 0.9% 10ml Syr (Rad Only) IV 09/27/24 14:57 10 ml ONCE ONE Administration ORDERS Category Date Time Status CT abdomen pelvis w con Stat Cat Scan 09/27/24 14:47 Completed POCUS Point of Care (ER Only) Stat Exams 09/27/24 16:26 Completed Blood alcohol [Ethyl Alcohol] Stat Lab 09/27/24 14:48 Completed CBC w/Auto Diff [Complete Blood Count Auto Diff] Stat Lab 09/27/24 14:48 Completed CMP [Comprehensive Metabolic Panel] Stat Lab 09/27/24 14:48 Completed INR [Prothrombin Time INR] Stat Lab 09/27/24 14:48 Completed Lipase Stat Lab 09/27/24 14:48 Completed Magnesium Stat Lab 09/27/24 14:48 Completed Trop I [Troponin I] Stat Lab 09/27/24 14:48 Completed UA [Urinalysis and Microscopic] Stat Lab 09/27/24 15:15 Completed Urine Culture Stat Micro 09/27/24 15:15 Received Medical Decision Narrative: In summary patient is a 23-year-old male who presents to the emergency department for evaluation of upper abdominal pain. Patient is hemodynamically stable blood pressure 120/56 heart rate 62 breathing 18 times a minute satting at high percent room air upon arrival, afebrile. Physical exam is remarkable for epigastric tenderness to palpation without rebound or guarding or rigidity and it is not focal. Patient has negative Calloway sign. Breath sounds clear and equal bilaterally to the bases without any tissue sounds. Differential diagnosis includes gastritis versus esophagitis versus pancreatitis versus cholecystitis versus colitis versus gastroenteritis etc. Initial workup will be conducted with hematologic labs urinalysis CT scan abdomen pelvis. Initial interventions include crystalloid bolus Toradol Tylenol and GI cocktail. Initial workup reviewed by me shows that his hematologic labs are nonactionable including normal white count with no shift normal H&H normal liver function test no hyperbilirubinemia troponins negative x 1 lipase is 71 however urinalysis is nitrite leukocyte protein and blood negative but his microscopic exam shows 3-5 red cells occasional white blood cells and 4+ bacteria alcohol is less than 10 and my informal interpretation of his CT scan abdomen pelvis does not show any evidence of cholecystitis cholelithiasis biliary ductal dilatation pancreatitis but does show transverse sigmoid and descending colon inflammation concerning for mesenteric distribution prior to radiology read. Upon repeat evaluation actually had complete resolution of his symptoms after administration of GI cocktail. Given this patient does have abnormalities that are inconsistent with his findings subjectively including colitis that improved after GI cocktail and bacteria without any urinary symptoms. However prior to final radiology read patient elected to leave via patient directed decision making in discharge and will follow-up with results of that on his portal but I have referred him to gastroenterology and started him on a PPI and close follow-up with his PCP. I independently examined and interviewed patient. No acute distress. States that the oral cocktail nearly got rid of his pain. Abdomen soft, nontender, nondistended on my exam. Independent interpretation of workup with nonactionable hematologic labs. Urine negative. Patient CT scan was independently interpreted and he has no acute intra-abdominal abnormalities. No obvious eroding ulcer, no fat stranding, normal appendix. Has enteric coating agent present, likely from oral sees been taking at home. Bedside [id number] ultrasound was performed, negative right upper quadrant findings. See note for further details. I was consulted by the LUIS, and we discussed the complexity of the problems being addressed. I approved the treatment and management plan for this patient's care in the Emergency Department, thus performing a substantive portion of the medical decision making. Harsh Lozano MD <Harsh Lozano MD - Last Filed: 09/27/24 21:49> Vital Signs: 09/27/24 14:41 09/27/24 15:24 09/27/24 15:30 Temperature 97.8 F Temperature Source Oral Pulse Rate 67 71 Pulse Rate [Right] 62 Respiratory Rate 18 Blood Pressure 106/65 L 122/61 Blood Pressure [Right Arm] 120/56 L Blood Pressure Mean [Right Arm] 77 Blood Pressure Position [Right Arm] Sitting 02 Sat by Pulse Oximetry 100 99 98 Oxygen Delivery Method Room Air Room Air Room Air 09/27/24 16:00 09/27/24 16:30 09/27/24 16:36 Temperature 98.2 F Temperature Source Pulse Rate 52 L 55 L 70 Pulse Rate [Right] Respiratory Rate 20 Blood Pressure 113/71 126/70 126/70 Blood Pressure [Right Arm] Blood Pressure Mean [Right Arm] Blood Pressure Position [Right Arm] 02 Sat by Pulse Oximetry 99 100 Oxygen Delivery Method Room Air Room Air Room Air Lab Data Lab Results 09/27/24 14:48: WBC 5.8, RBC 4.73, Hgb 13.8 L, Hct 40.4 L, MCV 85.4, MCH 29.2, MCHC 34.2, RDW 12.3, Plt Count 215, MPV 9.6, Neut % (Auto) 58.9, Lymph % (Auto) 29.5, [place] % (Auto) 8.5, Eos % (Auto) 2.3, Baso % (Auto) 0.5, Neut # (Auto) 3.4, Lymph # (Auto) 1.7, [place] # (Auto) 0.5, Eos # (Auto) 0.1, Baso # (Auto) 0.0, PT 11.1, INR 0.99, Sodium 139, Potassium 3.8, Chloride 103, Carbon Dioxide 29, Anion Gap 10.8, BUN 13, Creatinine 0.90, Estimated Creat Clear 164, Estimated GFR 103, Est GFR ( Amer) 124, Glucose 72 L, Calcium 8.8, Magnesium 1.8, Total Bilirubin 0.7, AST 36, ALT 31, Alkaline Phosphatase 83, Troponin I < 0.01, Total Protein 6.6, Albumin 4.5, Globulin 2.1, Albumin/Globulin Ratio 2.1 H, Lipase 71, Plasma/Serum Alcohol < 10 09/27/24 15:15: Urine Color Yellow, Urine Appearance Clear, Urine pH 6.0, Ur Specific [place] 1.020, Urine Protein Negative, Urine Glucose (UA) Negative, Urine Ketones Negative, Urine Blood Negative, Urine Nitrate Negative, Urine Bilirubin Negative, Urine Urobilinogen 0.2, Ur Leukocyte Esterase Negative, Urine RBC 3-5, Urine WBC Occasional, Urine Bacteria 4+ Orders (Tests/Meds): ED MEDICATIONS Discontinued Medications Generic Name Dose Route Start Last Admin Trade Name Freq PRN Reason Stop Dose Admin Belladonna Alkaloids 60 ml 09/27/24 14:47 09/27/24 14:54 Belladonna Alkaloids 60 Ml Ml PO 09/27/24 14:48 60 ml ONCE ONE Administration Lactated Ringer's 1,000 mls @ 999 mls/hr 09/27/24 14:47 09/27/24 14:54 Lactated Ringer's 1000 Ml Bag IV 09/27/24 15:47 999 mls/hr .Q1H1M ONE Administration Iopamidol 75 ml 09/27/24 14:56 09/27/24 14:57 Iopamidol-370 (76%);100ml Bottle IV 09/27/24 14:57 75 ml ONCE ONE Administration Ondansetron HCl 4 mg 09/27/24 14:47 09/27/24 14:54 Ondansetron 4mg/2ml Vial IV 09/27/24 14:48 4 mg ONCE ONE Administration Sodium Chloride 10 ml 09/27/24 14:56 09/27/24 14:56 Sodium Chloride 0.9% 10ml Syr (Rad Only) IV 09/27/24 14:57 10 ml ONCE ONE Administration ORDERS Category Date Time Status CT abdomen pelvis w con Stat Cat Scan 09/27/24 14:47 Completed POCUS Point of Care (ER Only) Stat Exams 02/12/25 16:26 Completed Blood alcohol [Ethyl Alcohol] Stat Lab 09/27/24 14:48 Completed CBC w/Auto Diff [Complete Blood Count Auto Diff] Stat Lab 09/27/24 14:48 Completed CMP [Comprehensive Metabolic Panel] Stat Lab 09/27/24 14:48 Completed INR [Prothrombin Time INR] Stat Lab 09/27/24 14:48 Completed Lipase Stat Lab 09/27/24 14:48 Completed Magnesium Stat Lab 09/27/24 14:48 Completed Trop I [Troponin I] Stat Lab 09/27/24 14:48 Completed UA [Urinalysis and Microscopic] Stat Lab 09/27/24 15:15 Completed Urine Culture Stat Micro 09/27/24 15:15 Received Medical Decision Narrative: In summary patient is a [age, sex] who presents to the emergency department for evaluation of [complaint]. Patient is [hemodynamically stable/unstable] upon arrival, [febrile/afebrile]. [Unremarkable physical exam, nonfocal exam versus focal remarkable exam]. Differential diagnosis includes [DDx]. Initial workup will be conducted with [hematologic labs, imaging, respiratory swab, describe workup]. Initial interventions include [crystalloid bolus, medications, p.o. challenge, etc.] initial workup reviewed by me [hematologic labs are remarkable for... Imaging remarkable for... Urinalysis remarkable for]. Upon repeat evaluation [patient had acceptable resolution of symptoms, had persistent pain for which additional interventions were conducted (describe interventions), tolerated p.o., was ambulatory, etc.]. Given this [patient is appropriate for discharge at this time and will be discharged with a prescription for... The case was discussed with hospital medicine regarding management and they will admit the patient their service for continued evaluation at this time... Etc.] Places where you can increase complexity: I informally interpreted the patient's chest x-ray or CT read and is remarkable for... Documenting what the vehicle monitor technician shows with rate and rhythm Consideration of test but deferring. Ex: I considered chest x-ray on this patient however given that they have no oxygen requirement and are clear to auscultation all lung [place] will be deferred. Social determinants of health: Given that patient is undomiciled increases complexity. Given that patient has polysubstance abuse compounds all aspects of care I independently examined and interviewed patient. No acute distress. States that the oral cocktail nearly got rid of his pain. Abdomen soft, nontender, nondistended on my exam. Independent interpretation of workup with nonactionable hematologic labs. Urine negative. Patient CT scan was independently interpreted and he has no acute intra-abdominal abnormalities. No obvious eroding ulcer, no fat stranding, normal appendix. Has enteric coating agent present, likely from oral sees been taking at home. Bedside [id number] ultrasound was performed, negative right upper quadrant findings. See note for further details. I was consulted by the LUIS, and we discussed the complexity of the problems being addressed. I approved the treatment and management plan for this patient's care in the Emergency Department, thus performing a substantive portion of the medical decision making. Harsh Lozano MD Procedures <Harsh Lozano MD - Last Filed: 09/27/24 21:49> Limited Ultrasound Indication:: Limited RUQ ultrasound Indication: Abdominal pain, epigastric Identified structures: -Gallbladder -Gallbladder wall -Common bile duct -Liver Findings: Sonographic Calloway sign: Absent Gallstones: Absent Sludge: Absent Pericholecystic fluid: Absent Maximal GB wall thickness (mm) (normal is </= 3mm): Normal Common bile duct width (mm) (normal is </= 6mm): Normal Gallbladder width (cm) (normal is < 4cm): Normal Gallbladder length (cm) (normal is < 10cm): Normal Impression: Completely normal right upper quadrant ultrasound. Normal echogenicity of liver, no stones, no secondary findings of cholecystitis. Images were saved to permanent archive The study was technically adequate CPT 45996-61 This study was performed by me, and I personally interpreted all images/videos. Based on my clinical judgement, these images were adequate and did not necessitate further imaging. Critical Care <JEREMIAH Downs - Last Filed: 09/27/24 21:19> Critical Care Time Critical Care Time: No
--- NOTE | 2024-09-27 14:47 | CT_ITS ---
FINAL REPORT TECHNIQUE: Thin section axial images are obtained through the abdomen and pelvis after intravenous contrast. Oral contrast was also administered. Reconstruction images were obtained from the axial data. Exam was performed using dose reduction techniques. CLINICAL HISTORY: Abdominal pain COMPARISON: None FINDINGS: LUNG BASES: Lung bases are clear. Heart size is normal. LIVER: Homogeneous. No focal lesion. GALLBLADDER/BILIARY SYSTEM: Gallbladder is present. No gallstones. No biliary dilatation. SPLEEN: Unremarkable. PANCREAS: Unremarkable. ADRENALS: Unremarkable. KIDNEYS/URETERS/BLADDER: No hydronephrosis, renal mass, or renal stone. Unremarkable urinary bladder. GI TRACT: No small bowel obstruction or dilatation. Appendix not seen but no secondary signs of appendicitis wall thickening of the transverse colon, splenic flexure, and proximal half of the descending colon with mild surrounding abnormal attenuation favored to represent colitis. PELVIC ORGANS: Unremarkable for age. LYMPH NODES/RETROPERITONEUM/MESENTERY: No lymphadenopathy. No abdominal aortic aneurysm. ABDOMINAL WALL: The abdominal wall is intact. FREE FLUID: No ascites. BONES: No acute osseous abnormality. IMPRESSION: Wall thickening transverse colon, splenic flexure, and proximal half of the descending colon most consistent with colitis favored to be infectious or inflammatory. Reviewed, Interpreted and Dictated by Maite Francois MD Transcribed by Claudette Simons Authenticated and [facility]
[2024-09-27] MEDS: BELLADONNA ALKALOIDS 60 ML ML PO (14:54)
[2024-09-27] MEDS: LACTATED RINGERS 1000ML 1,000 ML 999 ML IV (14:54)
[2024-09-27] MEDS: ONDANSETRON 4MG/2ML VIAL 4 MG IV (14:54)
[2024-09-27] MEDS: SODIUM CHLORIDE 0.9% 10ML SYR (RAD ONLY) 10 ML IV (14:56)
[2024-09-27] MEDS: IOPAMIDOL-370 (76%);100ML BOTTLE 75 ML IV (14:57)
[2024-09-27 15:02] LABS: Basophils % 0.5 % (0.1-2.0); Eosinophils # 0.1 K/mm3 (0.0-0.4); Eosinophils % 2.3 % (0.1-12.0); Hematocrit 40.4 % (42.0-52.0); Hemoglobin 13.8 g/dL (14.1-18.0); Lymphocytes # 1.7 K/mm3 (0.7-4.5); Lymphocytes % 29.5 % (10-50); Mean Corpuscular HGB Conc 34.2 g/dL (31.8-35.4); Mean Corpuscular Hemoglobin 29.2 pg (27.0-31.2); Mean Corpuscular Volume 85.4 fl (80-94); Mean Platelet Volume 9.6 fl (7.4-10.4); Monocytes # 0.5 K/mm3 (0.1-1.0); Monocytes % 8.5 % (1.7-9.3); Neutrophils # 3.4 K/mm3 (1.8-7.8); Neutrophils % 58.9 % (37.0-80.0); Platelet Count 215 K/mm3 (142-424); Red Blood Count 4.73 M/mm3 (4.60-6.20); Red Cell Distribution Width 12.3 % (11.5-17.5); White Blood Count 5.8 K/mm3 (4.8-10.8)
[2024-09-27 15:07] LABS: INR 0.99 (0.9-1.1); Prothrombin Time 11.1 seconds (10.1-12.5)
[2024-09-27 15:12] LABS: Albumin Level 4.5 g/dl (3.5-5.0); Chloride 103 mmol/L (98-107); Potassium 3.8 mmoL/L (3.5-5.1); Sodium 139 mmol/L (136-145)
[2024-09-27 15:15] LABS: Alanine Aminotransferase 31 U/L (12-78); Albumin/Globulin Ratio 2.1 (1.1-1.8); Alkaline Phosphatase 83 U/L (38-126); Anion Gap 10.8 mEq/L (5-15); Aspartate Amino Transferase 36 U/L (17-59); Bilirubin,Total 0.7 mg/dl (0.2-1.3); Blood Urea Nitrogen 13 mg/dl (9-20); Calcium 8.8 mg/dl (8.4-10.2); Carbon Dioxide 29 mmol/L (22.0-30.0); Creatinine Clearance Estimated 164 mL/min (50-200); Estimated Glomerular Filt Rate 103 ml/min (>60); GFR (African American) 124 ML/MIN (>60); Globulin 2.1 g/dL (1.3-3.2); Glucose 72 mg/dl (74-100); Lipase 71 U/L (23-300); Magnesium 1.8 mg/dl (1.6-2.3); Total Protein,Serum 6.6 g/dl (6.3-8.2)
--- NOTE | 2024-09-27 15:19 | PC.NURSE ---
UA was collected and patient stated that he doesnt need anything at this time.
[2024-09-27 15:21] LABS: Microscopic, Urine URINE MICROSCOPIC (MICROSCOPIC)
[2024-09-27 15:24] VITALS: BP 106/65; PULSE 67; O2SAT 99
[2024-09-27 15:30] VITALS: BP 122/61; PULSE 71; O2SAT 98
[2024-09-27 15:35] LABS: Appearance,Urine CLEAR (Clear); Bilirubin,Urine Negative (Negative); Blood, Urine Negative (Negative); Color,Urine YELLOW (Yellow); Glucose,Urine (UA) Negative (Negative); Ketones,Urine Negative (Negative); Leukocyte Esterase,Urine Negative (Negative); Nitrate,Urine Negative (Negative); Protein,Urine Negative (Negative); Urobilinogen,Urine 0.2 EU/dl (0.2)
[2024-09-27 15:37] LABS: Ethyl Alcohol < 10 mg/dl (0-10); Troponin I < 0.01 ng/ml (0.00-0.034)
--- NOTE | 2024-09-27 15:37 | PC.NURSE ---
ROUNDED ON THE PT. THE PT VOICES THAT HE DOES NOT NEED ANYTHING AT THIS TIME. CALL LIGHT IS WITHIN REACH OF THE PT.
[2024-09-27 16:00] VITALS: BP 113/71; PULSE 52; O2SAT 99
[2024-09-27 16:15] LABS: Bacteria,Urine 4+ /lpf; WBC,Urine Occasional #/hpf (0-3)
--- NOTE | 2024-09-27 16:18 | PC.NURSE ---
Patient in room and needs nothing at this time.
[2024-09-27 16:30] VITALS: BP 126/70; PULSE 55; O2SAT 100
--- NOTE | 2024-09-27 16:34 | PC.NURSE ---
ROUNDED ON THE PT. THE PT VOICES THAT HE DOES NOT NEED ANYTHING AT THIS TIME. CALL LIGHT IS WITHIN REACH OF THE PT.
[2024-09-27 16:36] VITALS: BP 126/70; PULSE 70; RESP 20; TEMP 36.8; O2SAT 100
[2024-09-29 05:17] LABS: Neisseria gonorrhoeae, NAA Negative (Negative)
== END 2024-09-27 16:40 | disposition home or self-care (01) ==
PROVIDERS: Physician Assistant; Emergency Provider Emergency Medicine
DX: R10.13 Epigastric pain (principal); R10.11 Right upper quadrant pain
CPT/HCPCS: 74177; 80053; 80320; 81001; 83690; 83735; 84484; 85025; 85610; 87086; 87491; 87591; 96361; 96374; 99285; G0480; J2405; J7120; Q9967